=== PATIENT | female | born 1980 | race Hispanic/Latino ===

== ENCOUNTER 2019-10-30 06:00 | Day surgery (SDC) | payer MEDICAID ==
[~2019-10-30] VITALS: Ht 149.9 cm; Wt 59.0 kg
[2019-10-30] MEDS ORDERED: SODIUM CHLORIDE 0.9% 1000ML 1,000 ML IV ONE (06:22)
[2019-10-30 07:01] VITALS: BP 110/78
[2019-10-30] MEDS ORDERED: PROPOFOL 10 MG/ML 20ML VIAL IV ONE (08:17)
[2019-10-30 08:30] VITALS: BP 84/55
[2019-10-30 08:35] VITALS: BP 110/68
[2019-10-30 08:40] VITALS: BP 135/54
== END 2019-10-30 09:15 | disposition home or self-care (01) ==
LOC: DAH 06:00 → ENDO 06:00
PROVIDERS: ATTEND Internal Medicine
DX: R19.4 Change in bowel habit (principal); K29.51 Unspecified chronic gastritis with bleeding; K22.8 Other specified diseases of esophagus; K21.9 Gastro-esophageal reflux disease without esophagitis; E66.01 Morbid (severe) obesity due to excess calories
CPT/HCPCS: 43239; 45378; 81025; 88305; A4215; A4221; A4222; A4223; A4606; A4615; A4663; J2704; J7030